=== PATIENT | male | born 1965 | race Caucasian/White ===

== ENCOUNTER 2017-08-06 19:56 | Emergency (ER) | payer BC ==
[~2017-08-06] VITALS: Ht 185.4 cm; Wt 97.3 kg
[2017-08-06 21:44] LABS: HEMATOCRIT 40.4 % (38.0-50.0); MCH 29.5 PG (29.0-34.0); MCHC 34.9 G/DL (30.0-36.0); MCV 84.5 FL (86-99); MEAN PLAT.VOLUME 9.1 uM^3 (9.0-12.4); PLATELET COUNT 231 K/uL (156-360); RBC DIS.WIDTH-CV 13.2 % (11.8-14.6); RBC DIS.WIDTH-SD 40.6 % (39-53); RED BLOOD COUNT 4.78 M/uL (4.00-5.50); WHITE BLOOD COUNT 8.9 K/uL (4.1-10.2)
[2017-08-06 22:03] LABS: CHLORIDE 103 mEq/L (99-109); POTASSIUM 3.3 mEq/L (3.7-5.4); SODIUM 141 mEq/L (136-147)
[2017-08-06 22:05] LABS: GLUCOSE 109 mg/dL (70-99)
[2017-08-06 22:06] LABS: ANION GAP 11 MEQ/L (2-14)
[2017-08-06 22:08] LABS: GFR ESTIMATE (CALCULATED) > 59 mL/min/
[2017-08-06 22:09] LABS: UREA NITROGEN (BUN) 25 mg/dL (9-23)
[2017-08-07 00:36] VITALS: BP 129/78
== END 2017-08-07 00:39 | disposition home or self-care (01) ==
LOC: EXP 19:56 → EME 19:56 → EXP 08-07 00:39
PROVIDERS: Emergency Medicine
DX: I10 Essential (primary) hypertension (principal)
CPT/HCPCS: 70450; 80048; 85027; 99281; 99284